=== PATIENT | female | born 1940 ===

== ENCOUNTER → 2020-01-23 | Outpatient (CLI) | payer MEDICARE, OTHER | END | disposition home or self-care (01) | LOC: LAB SHORT 18:52 → LAB 18:52 | DX: D22.5 Melanocytic nevi of trunk (principal); L08.9 Local infection of the skin and subcutaneous tissue, unspecified; L21.8 Other seborrheic dermatitis; L81.4 Other melanin hyperpigmentation; L02.821 Furuncle of head [any part, except face] | CPT/HCPCS: 87070; 87205 ==